=== PATIENT | female | born 1995 | race African-American/Black ===

== ENCOUNTER 2016-07-31 19:31 | Emergency (ER) | payer OTHER ==
[~2016-07-31] VITALS: Ht 175.3 cm; Wt 102.3 kg
[2016-07-31 19:41] VITALS: BP 123/75; PULSE 70; RESP 16; O2SAT 98
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
[2016-07-31 22:22] VITALS: BP 126/78; PULSE 72; RESP 17; O2SAT 99
== END 2016-07-31 22:23 ==
LOC: SED 19:31 → EDBD 19:31 → SED 22:23
DX: S46.811A Strain of other muscles, fascia and tendons at shoulder and upper arm level, right arm, initial encounter (principal); M25.511 Pain in right shoulder; R07.89 Other chest pain; V53.6XXA Passenger in pick-up truck or van injured in collision with car, pick-up truck or van in traffic accident, initial encounter; Y93.89 Activity, other specified; Y99.8 Other external cause status; Y92.410 Unspecified street and highway as the place of occurrence of the external cause